=== PATIENT | female | born 1970 | race Caucasian/White ===

== ENCOUNTER 2023-04-04 22:01 | Emergency (ER) | payer OTHER, SELFPAY ==
[2023-04-04 22:04] VITALS: BP 180/112
[2023-04-04 22:30] VITALS: BP 147/98
--- NOTE | 2023-04-04 22:53 | ED.GENMED ---
History of Present Illness
<LATRICE Gray - Last Filed: 04/05/23 03:43>
General
Chief Complaint: Musculo-Skeletal Complaint
Source: patient
Exam Limitations: none
Time Seen by Provider: 04/04/23 22:34
Nursing documentation reviewed up to this point in time: agreed with
Travel History
Have you had any contact with someone who has COVID-19?: No
Do you have any symptoms of coronavirus? Fever > 100 degrees, chills, cough, shortness of breath, sore throat, loss of taste or smell, muscle aches, or headache?: No
History of Present Illness
History of Present Illness:
52 y/o F presents to ED complaining of L hip pain x 3 days. She reports the pain was bearable the first day but has since worsened. She states she has difficult moving her left leg, especially when sitting down or going from sitting to standing. She
reports the pain when she lays down is pulsating but a sharp constant pain in any other position. She reports walking helps the pain. She has been putting a heating pad and took 2 OTC Tylenol this morning at 8:30am. She reports the pain is still
persistent. She reports the pain is 10/10 and is tender at her lateral leg. She reports a similar pain a few years ago but states it was not as bad as today. Denies trauma, numbness, tingling, erythema or swelling.
If applicable-neuro sx onset
Onset of symptoms known: Yes
Date of onset of symptoms: 04/02/23
Time pt last seen normal is known: Yes
Date last time pt seen normal: 04/01/23
Past History
<LATRICE Gray - Last Filed: 04/05/23 03:43>
Past History
ED Past Medical History: None
ED Past Surgical History: and Orthopedic
Social History
Tobacco: Non-smoker
Alcohol: Occasional
Drug: None
Personal:
Living: with family
Employment: Employed
Family History
Family History: Early CAD (brothers, father)
Review of Systems
<LATRICE Gray - Last Filed: 04/05/23 03:43>
Review of Systems
Allergies reviewed?: Yes
All Other Systems: ROS reviewed and negative except as documented in HPI and ROS
Constitutional: Reports no symptoms
EENT: Reports no symptoms
Respiratory: Reports no symptoms
Cardiac: Reports no symptoms
ABD/GI: Reports no symptoms
: Reports no symptoms
Musculoskeletal: Reports muscle pain
Skin: Reports no symptoms
Neurological: Reports no symptoms
Endocrine: Reports no symptoms
Hematologic/Lymphatic: Reports no symptoms
Psychiatric: Reports no symptoms
Phy Exam
<LATRICE Gray - Last Filed: 04/05/23 03:43>
General Physical Exam
General Presentation: well appearing and mild distress
General age: appears stated age
General Skin: warm
General Habitus: normal
General Mental: alert
General Hydration: appears well hydrated
Cardiovascular Exam
Cardiovascular Exam: regular rate/rhythm, no edema, no gallop and no murmur
Pulmonary Exam
Pulmonary Exam: lungs clear, no respiratory distress, no rales, no crackles, no rhonchi, no wheezing and no cough
Musculoskeletal Exam
Musculoskeletal Exam: full ROM, neuro vasc intact and other (tender to palpation along lateral L hip near greater trochanter, negative straight leg raise, 5/5 strength in R hip and R knee, limited strength in L hip likely secondary to pain)
Skin Exam
Skin Exam: normal color and redness (mild erythema along lateral left leg )
Psychiatric Exam
Psychiatric Exam: normal mood/affect
Course
<LATRICE Gray - Last Filed: 04/05/23 03:43>
Orders/Labs/Results
Orders:
Orders
04/05/23 00:00
CR Hip - LT w/wo Pel 2-3 Vw* Urgent
Reason For Exam: pain,
Include a pelvis x-ray?: Yes
04/05/23 00:29
Dexamethasone Pf [Decadron] 10 mg PO NOW STA
Famotidine [Pepcid] 20 mg PO NOW STA
Ketorolac [Toradol] 30 mg IM NOW STA
04/05/23 02:12
Oxycodone/Acetaminophen [Percocet 5/325] 2 tablet PO NOW STA
Vital Signs
Initial and Last Documented VS:
Initial Vital Signs
Temp Pulse Resp BP Pulse Ox
98.1 F 88 22 180/112 100
04/04/23 22:04 04/04/23 22:04 04/04/23 22:04 04/04/23 22:04 04/04/23 22:04
Last Documented Vital Signs
Temp Pulse Resp BP Pulse Ox
98.1 F 84 17 137/101 94
04/04/23 22:04 04/05/23 03:18 04/05/23 03:18 04/05/23 03:00 04/05/23 03:00
<Charles Junior, DO - Last Filed: 04/05/23 03:20>
Orders/Labs/Results
Orders:
Orders
04/05/23 00:00
CR Hip - LT w/wo Pel 2-3 Vw* Urgent
Reason For Exam: pain,
Include a pelvis x-ray?: Yes
04/05/23 00:29
Dexamethasone Pf [Decadron] 10 mg PO NOW STA
Famotidine [Pepcid] 20 mg PO NOW STA
Ketorolac [Toradol] 30 mg IM NOW STA
04/05/23 02:12
Oxycodone/Acetaminophen [Percocet 5/325] 2 tablet PO NOW STA
Vital Signs
Initial and Last Documented VS:
Initial Vital Signs
Temp Pulse Resp BP Pulse Ox
98.1 F 88 22 180/112 100
04/04/23 22:04 04/04/23 22:04 04/04/23 22:04 04/04/23 22:04 04/04/23 22:04
Last Documented Vital Signs
Temp Pulse Resp BP Pulse Ox
98.1 F 84 17 137/101 94
04/04/23 22:04 04/05/23 03:18 04/05/23 03:18 04/05/23 03:00 04/05/23 03:00
<LATRICE Gray - Last Filed: 04/05/23 03:43>
MDM/Problems Addressed
Differential Diagnosis Includes:
greater trochanter pain syndrome (trochanteric bursitis)
hip arthritis
neuropathy (less likely given no radiation of pain, negative straight leg raise test)
hip dislocation/fracture
IT band syndrome (not likely given pain is not present on hip or knee)
<Charles Junior DO - Last Filed: 04/05/23 03:20>
*Radiology
Radiology exam reviewed: all reviewed NAD by ED Provider
*Critical Care Note
Total Time (30-74mins, 75-104mins- exclusive of procedures): Not Applicable
<LATRICE Gray - Last Filed: 04/05/23 03:43>
Update Note
Update Note:
0109: Patient given Toradol 30mg at 00:30. Reports pain unchanged.
0218: Patient reports pain is unchanged. No relief reported.
0317: Pain is slightly better after Percocet. Able to sit up and move around with less pain although still limited.
ED Attending Note
<LATRICE Gray - Last Filed: 04/05/23 03:43>
-
Portions of this chart may have been created with voice recognition software.� Occasional wrong word or��sound alike� substitutions may have occurred due to the inherent limitations of voice recognition software.
<Charles Junior, - Last Filed: 04/05/23 03:20>
ED Attending Note
Patient seen and examined by attending physician: Yes
I performed the substantive portion of visit, reviewed & personally made and approve the management plan that is documented in note by myself or AGNES.: Yes
Discharge Plan
Departure
Patient Disposition: Home (Routine Discharge)
Date of Disposition: 04/05/23
Time of Disposition: 03:16
Patient with high blood pressure during this ER visit?: Yes
Condition: Fair
Discharge Problem:
Acute pain of left hip
Instructions: Muscle and Bone Pain (DC), BLOOD PRESSURE
Prescriptions:
New
oxycodone-acetaminophen [Percocet] 5-325 mg tablet
1 tab PO Q6HPRN PRN (Reason: pain) Qty: 10 0RF
No Action
oxycodone-acetaminophen 5 MG/325 MG tablet
1 tab PO Q4HPRN PRN (Reason: Pain) Qty: 10 0RF
ibuprofen 600 MG tablet
600 mg PO Q6 Qty: 20 0RF
Referrals:
NONE,* [Family Provider] -
Nirav Veronica MD [Active] -
Activity Restrictions/Additional Instructions:
Your Percocet prescription was transmitted to the [facility] pharmacy you requested.
It was a pleasure meeting you and taking part in your care. We hope for your continued healing and wellness.
Please read discharge instructions in their entirety. However, they are for general education and may not describe your exact diagnosis at discharge. Information on your ER visit and medical conditions were discussed with you along with appropriate
follow up information...
If indicated, please take your medications as instructed and indicated on discharge paperwork.
Please schedule a follow up appointment as directed. Call to schedule an appointment
Please return to the emergency department with ANY change in, persisting, or worsening of symptoms. If any of your symptoms do not improve, or persist, or become more severe within 6-12 hours, please return to the emergency department for further
care.
Please return to the emergency department if you develop a headache, neck pain/stiffness, fever greater than 100.4F, chest pain, shortness of breath, persistent nausea, vomiting, slurred speech, difficulty walking, numbness/tingling, weakness, signs
of infection or any other symptoms that are worrisome to you.
If you have any questions or concerns please do not hesitate to call the Hospital at or E-mail me directly at [email or web address]
Interventions
Interventions:
*Risk Screen - Suicide Last Done: 04/04/23 22:04
*General Assessment Last Done: 04/04/23 22:33
*Neglect/Abuse Screening Last Done: 04/04/23 22:04
ED- Fall Risk Assessment Last Done: 04/04/23 22:33
*ED COVID-19 Vaccine History Last Done: 04/04/23 22:33
ED-Musculoskeletal Assessment Last Done: 04/04/23 22:33
[2023-04-04 23:00] VITALS: BP 138/94
[2023-04-05] MEDS: DECADRON 10 MG PO (00:51)
[2023-04-05] MEDS: PEPCID 20 MG PO (00:51)
[2023-04-05] MEDS: TORADOL 30 MG IM (00:52)
[2023-04-05 00:55] VITALS: BP 149/92
[2023-04-05 01:00] VITALS: BP 145/81
[2023-04-05 02:00] VITALS: BP 129/83
[2023-04-05] MEDS: PERCOCET 5/325 2 TABLET PO (02:55)
[2023-04-05 03:00] VITALS: BP 137/101
== END 2023-04-05 03:46 | disposition home or self-care (01) ==
LOC: EMR 22:01
PROVIDERS: EMERGENCY PHYSICIAN Student in an Organized Health Care Education/Training Program
DX: M25.552 Pain in left hip (principal); Z82.49 Family history of ischemic heart disease and other diseases of the circulatory system
CPT/HCPCS: 99284; 96372; 73502

== ENCOUNTER → 2024-01-11 15:32 | Outpatient (REF) | payer OTHER, SELFPAY | LOC: RAD 15:32 | PROVIDERS: ATTENDING PHYSICIAN Obstetrics & Gynecology; FAMILY PHYSICIAN Family Medicine | DX: N95.0 Postmenopausal bleeding (principal) | CPT/HCPCS: 76830; 76856 ==

== ENCOUNTER → 2024-02-25 19:26 | Outpatient (REF) | payer OTHER, SELFPAY | LOC: WDC 19:26 | PROVIDERS: ATTENDING PHYSICIAN Obstetrics & Gynecology Gynecology; FAMILY PHYSICIAN Family Medicine | DX: Z12.31 Encounter for screening mammogram for malignant neoplasm of breast (principal) | CPT/HCPCS: 77063; 77067 ==

== ENCOUNTER → 2024-06-08 17:33 | Outpatient (REF) | payer OTHER, SELFPAY | LOC: RAD 17:33 | PROVIDERS: ATTENDING PHYSICIAN Nurse Practitioner Adult Health | DX: R05.1 Acute cough (principal) | CPT/HCPCS: 71046 ==

== ENCOUNTER 2024-09-14 21:27 | Emergency (ER) | payer OTHER, SELFPAY ==
[2024-09-14 21:31] VITALS: BP 149/103
--- NOTE | 2024-09-15 00:02 | ED.GENMED ---
History of Present Illness
General
Chief Complaint: Urinary Symptoms
Source: patient
Exam Limitations: none
Time Seen by Provider: 09/14/24 23:53
Nursing documentation reviewed up to this point in time: agreed with
History of Present Illness
History of Present Illness:
53-year-old female presents with right flank pain seen by her PCP started on Macrobid blood pressures also been running high not started on meds for that she has some headache and worsening flank pain despite antibiotics, some relief of the headache
with Motrin no fevers no nausea or vomiting, not known to be diabetic nor hypertensive no history of kidney stones but did have hematuria previously underwent a cystoscopy
Past History
Past History
ED Past Surgical History: and Orthopedic
Social History
Tobacco: Non-smoker
Alcohol: Occasional
Drug: None
Personal:
Living: with family
Employment: Employed
Family History
Family History: Early CAD (brothers, father)
Review of Systems
Review of Systems
All Other Systems: Not applicable
Constitutional: Denies fever
EENT: Reports no symptoms
Respiratory: Reports no symptoms
Cardiac: Reports no symptoms
: Reports flank pain; Denies dysuria or incontinence
Musculoskeletal: Reports back pain
Neurological: Reports headache
Endocrine: Reports no symptoms
Hematologic/Lymphatic: Reports no symptoms
Phy Exam
Physical Exam
Physical Exam:
Physical Exam
General: no apparent distress, not acutely ill
Neck: No jaundice
Heart: s1/s2 regular rate and rhythm, no murmur. equal radial pulses.
Lungs: no acute respiratory distress.
Abdomen: Soft mild tenderness in the right CVA
Neuro: alert and oriented. no focal neurological deficits
Skin: no rash
Psychiatric: well kept. interactive and cooperative
Extremities: no edema.
Course
Orders/Labs/Results
Orders:
Orders
09/14/24 21:45
Urinalysis Reflex To Culture Urgent
09/15/24 00:02
CT Abd/pel Without Iv Or Oral Urgent
Comment:
Reason For Exam: Right flank pain
IV Insert/Care/Rem.- Treatment PRN
Acetaminophen [Tylenol] 1,000 mg PO NOW STA
Ketorolac [Toradol] 30 mg IV NOW STA
09/15/24 00:27
Complete Blood Count/With Diff Urgent
Comprehensive Metabolic Panel Urgent
Abnormal Lab Results
09/15/24
00:27
RBC 4.06 L 10^6/uL
(4.20-5.40)
MCH 31.5 H pg
(27.0-31.0)
Chloride 108 H mmol/L
(98-107)
09/15/24 00:27
09/15/24 00:27
Vital Signs
Initial and Last Documented VS:
Initial Vital Signs
Temp Pulse Resp BP Pulse Ox
97.6 F 78 16 149/103 98
09/14/24 21:31 09/14/24 21:31 09/14/24 21:31 09/14/24 21:31 09/14/24 21:31
Last Documented Vital Signs
Temp Pulse Resp BP Pulse Ox
97.6 F 70 16 153/90 99
09/14/24 21:31 09/15/24 00:33 09/15/24 00:33 09/15/24 00:33 09/15/24 00:33
MDM/Problems Addressed
Differential Diagnosis Includes:
UTI stone muscle strain primary hypertension elevated blood pressure due to pain
MDM/Problems Addressed:
Flank pain hypertension
*Radiology
Radiology exam reviewed: radiology read reviewed
*Pulse Oximetry
SaO2: 98
Oxygen Mode of Delivery: Room air
Patient hypoxic: no
*Critical Care Note
Total Time (30-74mins, 75-104mins- exclusive of procedures): Not Applicable
Update Note
Update Note:
[address] report noted patient appears comfortable blood pressure coming down urinalysis with sent will wait to discharge to see how that looks, consideration for analgesics muscle relaxant versus new antibiotics versus antihypertensives
2:40 AM urinalysis totally clear will add some muscle relaxants
ED Attending Note
-
Portions of this chart may have been created with voice recognition software.� Occasional wrong word or��sound alike� substitutions may have occurred due to the inherent limitations of voice recognition software.
Discharge Plan
Departure
Patient Disposition: Home (Routine Discharge)
Date of Disposition: 09/15/24
Time of Disposition: 02:39
Patient with high blood pressure during this ER visit?: Yes
Condition: Good
Discharge Problem:
Back pain
Instructions: High Blood Pressure (DC), Back exercises, Back Pain
Prescriptions:
New
metaxalone 800 mg tablet
800 mg PO QID PRN (Reason: muscle pain) Qty: 20 0RF
naproxen [Naprosyn] 500 mg tablet
500 mg PO BID PRN (Reason: Pain) Qty: 20 0RF
No Action
oxycodone-acetaminophen 5 MG/325 MG tablet
1 tab PO Q4HPRN PRN (Reason: Pain) Qty: 10 0RF
ibuprofen 600 MG tablet
600 mg PO Q6 Qty: 20 0RF
oxycodone-acetaminophen [Percocet] 5-325 mg tablet
1 tab PO Q6HPRN PRN (Reason: pain) Qty: 10 0RF
Referrals:
UNKNOWN - PT DOES,NOT KNOW [Family Provider]
Activity Restrictions/Additional Instructions:
Follow-up with your primary care provider
Interventions
Interventions:
*Risk Screen - Suicide Last Done: 09/14/24 21:31
*General Assessment Last Done: 09/15/24 00:33
*Neglect/Abuse Screening Last Done: 09/14/24 21:31
*ED- Fall Risk Assessment Last Done: 09/15/24 00:33
*ED COVID-19 Vaccine History Last Done: 09/15/24 00:33
ED- Cardiac Assessment Last Done: 09/15/24 00:33
ED-Female Genitourinary Assessment Last Done: 09/15/24 00:33
ED- Neurological Assessment Last Done: 09/15/24 00:33
ED- Pulmonary Assessment Last Done: 09/15/24 00:33
Discharge Date and Time
Print Language: PORTUGUESE
[2024-09-15] MEDS: TYLENOL 1000 MG PO (00:30)
[2024-09-15] MEDS: TORADOL 30 MG IV (00:30)
[2024-09-15 00:33] VITALS: BP 153/90; BMI 29.9
[2024-09-15 00:49] LABS: Hematocrit 37.9 % (37.0-47.0); Hemoglobin 12.8 g/dL (12.0-16.0); Mean Corp Hgb Conc. 33.8 g/dL (33.0-37.0); Mean Corpuscular Volume 93.3 fL (81.0-99.0); Nucleated Red Blood Cells % 0 %; Platelet Count 243 10^3/uL (130-400); Red Cell Dist. Width 12.5 % (11.5-14.5)
[2024-09-15 01:05] LABS: ALT (SGPT) 15 U/L (0-35); AST (SGOT) 20 U/L (14-36); Albumin 4.0 g/dl (3.5-5.0); Alkaline Phosphatase 64 U/L (38-126); Blood Urea Nitrogen 14 mg/dl (7-17); Calcium 10.0 mg/dl (8.4-10.2); Carbon Dioxide 29 mmol/L (22-30); Chloride 108 mmol/L (98-107); Estimated Creatinine Clearance 99 ml/min; Glucose 89 mg/dl (70-99); Potassium 3.9 mmol/L (3.5-5.1); Sodium 140 mmol/L (135-145); Total Protein 6.7 g/dl (6.3-8.2); eGFR > 60.00
[2024-09-15 02:30] LABS: Urine Character Clear (Clear)
== END 2024-09-15 03:05 | disposition home or self-care (01) ==
LOC: EMR 21:27
PROVIDERS: EMERGENCY PHYSICIAN Emergency Medicine
DX: M54.9 Dorsalgia, unspecified (principal); R10.9 Unspecified abdominal pain; R51.9 Headache, unspecified; R03.0 Elevated blood-pressure reading, without diagnosis of hypertension; K21.9 Gastro-esophageal reflux disease without esophagitis; Z86.16 Personal history of COVID-19; Z88.5 Allergy status to narcotic agent; Z88.0 Allergy status to penicillin
CPT/HCPCS: 99284; 96374; 74176; 80053; 81003; 85025

== ENCOUNTER 2024-11-08 19:12 | Emergency (ER) | payer OTHER, SELFPAY ==
[2024-11-08 19:18] VITALS: BP 136/101
--- NOTE | 2024-11-08 22:16 | ED.MUSCINJ ---
HPI-Injury
General
Chief Complaint: Musculo-Skeletal Complaint
Source: patient
Exam Limitations: none
Time Seen by Provider: 11/08/24 20:44
Nursing documentation reviewed up to this point in time: agreed with
History of Present Illness-Injury
Initial Injury comments:
54-year-old female with no significant past medical history states she she tripped on a sidewalk in [facility] 2 evenings ago and fell landing with direct impact to her left rib area. She denies hitting her head. She got up and states she felt fine and
she continued on walking and visiting as was planned that night. The next morning yesterday, she said the pain was worse and is gradually getting worse as the day wears on. Prior to coming here she took 600 mg of Advil which upset her stomach.
She denies trouble breathing but feels like she can only take short shallow breaths due to the pain she denies abdominal pain. She denies any other injury.
Past History
Past History
ED Past Medical History: None
ED Past Surgical History: and Orthopedic
Social History
Tobacco: Non-smoker
Alcohol: Occasional
Drug: None
Personal:
Living: with family
Employment: Employed
Family History
Family History: Early CAD (brothers, father)
Review of Systems
Review of Systems
Allergies reviewed?: Yes
All Other Systems: ROS reviewed and negative except as documented in HPI and ROS
Phy Exam
Physical Exam
Physical Exam:
GENERAL: No acute distress. A&Ox3.
CONSTITUTIONAL: Afebrile.
EYES: clear, conjunctivae normal
ENMT: moist mucus membranes, Pharynx nl
RESPIRATORY: Regular respirations, nonlabored, lungs clear.
CARDIOVASCULAR: Regular rate and rhythm, no murmurs, no rubs.
GI: Soft, nontender, normal BS
MUSCULOSKELETAL: No spinal bony tenderness. Tender to palpate mid to lower left ribs. Small area of ecchymosis on left breast. Moves with ease. Well perfused.
SKIN: Warm, dry, pink
PSYCH: Normal mood and affect. Well kept, interactive and appropriate
NEUROLOGIC: Awake, alert and oriented. No focal neurological deficits
Injury Course
Orders/Labs/Results
Orders:
Orders
11/08/24 19:25
Ribs, Left 3 View W/PA Chest CR [CR Ribs-left 3 Vw W/pa Chest] Urgent
Comment:
Reason For Exam: fall, left rib pain
11/08/24 22:18
Oxycodone/Acetaminophen [Percocet 5/325] 1 tablet PO NOW STA
MDM/Problems Addressed
Differential Diagnosis Includes:
Contusion chest wall, intercostal sprain, rib fracture
MDM/Problems Addressed:
54-year-old female with no significant past medical history states she she tripped on a sidewalk in [facility] 2 evenings ago and fell landing with direct impact to her left rib area. She denies hitting her head. She got up and states she felt fine and
she continued on walking and visiting as was planned that night. The next morning yesterday, she said the pain was worse and is gradually getting worse as the day wears on. Prior to coming here she took 600 mg of Advil which upset her stomach.
She denies trouble breathing but feels like she can only take short shallow breaths due to the pain she denies abdominal pain. She denies any other injury.
X-ray ribs initially read by this examiner, questionable nondisplaced fracture of the mid left eighth rib. No hemo or pneumothorax. This was confirmed by the radiology read.
Rib belt applied with some comfort. Incentive spirometer given
BP recheck 132/88
*Pulse Oximetry
SaO2: 100
Oxygen Mode of Delivery: Room air
Patient hypoxic: no
*Critical Care Note
Total Time (30-74mins, 75-104mins- exclusive of procedures): Not Applicable
ED Attending Note
-
Portions of this chart may have been created with voice recognition software.� Occasional wrong word or��sound alike� substitutions may have occurred due to the inherent limitations of voice recognition software.
Discharge Plan
Departure
Patient Disposition: Home (Routine Discharge)
Date of Disposition: 11/08/24
Time of Disposition: 22:20
Patient with high blood pressure during this ER visit?: No
Condition: Good
Discharge Problem:
Fall from slip, trip, or stumble, Fracture of left eighth rib
Instructions: Rib fracture or bruised rib - ED (DC)
Prescriptions:
New
hydrocodone-acetaminophen 5-325 mg tablet
1 tab PO BID PRN (Reason: Pain) Qty: 6 0RF
No Action
oxycodone-acetaminophen 5 MG/325 MG tablet
1 tab PO Q4HPRN PRN (Reason: Pain) Qty: 10 0RF
ibuprofen 600 MG tablet
600 mg PO Q6 Qty: 20 0RF
oxycodone-acetaminophen [Percocet] 5-325 mg tablet
1 tab PO Q6HPRN PRN (Reason: pain) Qty: 10 0RF
metaxalone 800 mg tablet
800 mg PO QID PRN (Reason: muscle pain) Qty: 20 0RF
naproxen [Naprosyn] 500 mg tablet
500 mg PO BID PRN (Reason: Pain) Qty: 20 0RF
Referrals:
Teresita Eduardo MD [Family Provider, Family Practice] - As needed
Activity Restrictions/Additional Instructions:
As we discussed, we are the rib belt if it helps with the pain. Use the incentive spirometer 10 times every hour while awake.
Ibuprofen 600 mg, with food, every 6 hours as needed for mild to moderate pain.
I sent a prescription to your pharmacy for Vicodin(hydrocodone) to use if needed for worse pain
Interventions
Interventions:
*Risk Screen - Suicide Last Done: 11/08/24 19:23
*General Assessment Last Done: 11/08/24 22:30
*Neglect/Abuse Screening Last Done: 11/08/24 19:23
*ED- Fall Risk Assessment Last Done: 11/08/24 22:30
*Nursing Disposition Last Done: 11/08/24 22:31
ED-Musculoskeletal Assessment Last Done: 11/08/24 22:30
Discharge Date and Time
Discharge Date/Time: 11/08/24 22:32
Print Language: CITIZEN [place]
[2024-11-08] MEDS: PERCOCET 5/325 1 TABLET PO (22:32)
== END 2024-11-08 22:32 | disposition home or self-care (01) ==
LOC: EMR 19:12
PROVIDERS: EMERGENCY PHYSICIAN Emergency Medicine; FAMILY PHYSICIAN Family Medicine
DX: S22.32XA Fracture of one rib, left side, initial encounter for closed fracture (principal); W01.0XXA Fall on same level from slipping, tripping and stumbling without subsequent striking against object, initial encounter; Y93.01 Activity, walking, marching and hiking
CPT/HCPCS: 99283; 71101

== ENCOUNTER 2024-11-16 19:57 | Emergency (ER) | payer OTHER, SELFPAY ==
[2024-11-16 20:02] VITALS: BP 179/110
[2024-11-16 20:18] LABS: Hematocrit 38.7 % (37.0-47.0); Hemoglobin 13.0 g/dL (12.0-16.0); Mean Corp Hgb Conc. 33.6 g/dL (33.0-37.0); Mean Corpuscular Volume 94.6 fL (81.0-99.0); Nucleated Red Blood Cells % 0 %; Platelet Count 271 10^3/uL (130-400); Red Cell Dist. Width 13.0 % (11.5-14.5)
[2024-11-16 20:31] LABS: ALT (SGPT) 19 U/L (0-35); AST (SGOT) 26 U/L (14-36); Albumin 4.4 g/dl (3.5-5.0); Alkaline Phosphatase 62 U/L (38-126); Blood Urea Nitrogen 19 mg/dl (7-17); Calcium 9.6 mg/dl (8.4-10.2); Carbon Dioxide 27 mmol/L (22-30); Chloride 104 mmol/L (98-107); Glucose 91 mg/dl (70-99); Potassium 3.7 mmol/L (3.5-5.1); Sodium 138 mmol/L (135-145); Total Protein 7.0 g/dl (6.3-8.2); eGFR > 60.00
[2024-11-16 20:42] LABS: Troponin I < 0.012 ng/ml
[2024-11-16 22:00] VITALS: BP 147/97
[2024-11-16 22:31] VITALS: BMI 29.3
[2024-11-16 22:33] VITALS: BP 178/89
[2024-11-16 22:35] VITALS: BP 178/89
[2024-11-16 23:00] VITALS: BP 161/95
[2024-11-16] MEDS: TORADOL 30 MG IV (23:38)
--- NOTE | 2024-11-16 23:49 | ED.GENMED ---
History of Present Illness
General
Chief Complaint: Chest Pain
Source: patient
Exam Limitations: none
Time Seen by Provider: 11/16/24 23:01
Nursing documentation reviewed up to this point in time: agreed with
History of Present Illness
History of Present Illness:
see MDM
Past History
Past History
ED Past Medical History: None
ED Past Surgical History: and Orthopedic
Social History
Tobacco: Non-smoker
Alcohol: Occasional
Drug: None
Personal:
Living: with family
Employment: Employed
Family History
Family History: Early CAD (brothers, father)
Review of Systems
Review of Systems
Allergies reviewed?: Yes
All Other Systems: Not applicable
Phy Exam
Physical Exam
Physical Exam:
GENERAL: Alert , in no apparent distress
EYE: pupils equal and reactive
NECK: Supple
ENT: o/p clr, mmm.
CARDIAC: Regular rate and rhythm .
chest wall: L upper lateral brest with brownish bruising
tender L anterior 8th rib region mid clavicular line
LUNGS: Clear breath sounds bilaterally, no acute respiratory distress, no wheezes/rales/rhonchi
ABDOMEN: Soft, without focal tenderness, no r/g, no cvat, normal bowel sounds
NEUROLOGICAL: Alert and oriented, no focal neuro deficits
SKIN: Warm and dry, skin intact.
MUSCULOSKELETAL: No edema, well perfused. neg saida's sign
PSYCH: Normal and appropriate interaction.
Course
Orders/Labs/Results
Orders:
Orders
11/16/24 19:57
ECG [Electrocardiogram (*1)] Urgent
Reason for Study: Chest Pain
EKG- Treatment ONCE
11/16/24 20:05
CR Chest - 2 Views Urgent
Comment:
Reason For Exam: chest discomfort
11/16/24 20:11
Complete Blood Count/With Diff Urgent
Comprehensive Metabolic Panel Urgent
Troponin I Urgent
11/16/24 23:24
CT Chest PE Study Urgent
Comment:
Reason For Exam: L pleuritic pain, sob, recent trauma
Ketorolac [Toradol] 30 mg IV NOW STA
11/16/24 23:25
Electrocardiogram (*1) Urgent
Reason for Study: Chest Pain
EKG- Treatment ONCE
11/17/24
Electrocardiogram (*1) Stat
Reason for Study: Chest Pain
11/17/24 00:31
Troponin I Urgent
Abnormal Lab Results
11/16/24
20:11
RBC 4.09 L 10^6/uL
(4.20-5.40)
MCH 31.8 H pg
(27.0-31.0)
BUN 19 H mg/dl
(7-17)
11/16/24 20:11
11/16/24 20:11
Vital Signs
Initial and Last Documented VS:
Initial Vital Signs
Temp Pulse Resp BP Pulse Ox
36.7 C 67 18 179/110 99
11/16/24 20:02 11/16/24 20:02 11/16/24 20:02 11/16/24 20:02 11/16/24 20:02
Last Documented Vital Signs
Temp Pulse Resp BP Pulse Ox
36.4 C 74 16 135/87 93
11/16/24 22:35 11/17/24 01:45 11/17/24 01:45 11/17/24 01:00 11/17/24 01:30
MDM/Problems Addressed
MDM/Problems Addressed:
Note:
CHIEF COMPLAINT(S)
Persistent thoracic pain and episodic burning sensation after a fall.
HISTORY OF PRESENT ILLNESS
The patient is a 54-year-old female who presents with thoracic pain and intermittent burning sensation following a fall on the sidewalk approximately two weeks ago. She describes the pain as persistent and initially sought care where an X-ray noted
a nondisplaced rib fracture at the left eighth rib. The pain is exacerbated by movements such as vacuuming and bending, as well as lying flat, while standing seems to alleviate the discomfort to some extent.
The patient reports that initially prescribed pain medications, including Ibuprofen and acetaminophen, have not provided significant relief. She experiences difficulty breathing deeply due to the pain and mentions a heightened sensitivity to rainy
and damp weather. More recently, she describes a burning sensation that occurs sporadically, lasting about 5-6 seconds with intervals of the same duration. This burning is not associated with exertion and hasnt alleviated with position change or
resting. The sensation occurs over her chest and sometimes radiates to the shoulder blades.
The patient denies any sharp chest pain or changes associated with exertion such as walking. She also does not report any gastrointestinal symptoms such as acid reflux.
On exploring potential life-threatening causes of these symptoms, an EKG and initial troponin test showed no clear evidence of acute coronary syndrome. A chest CT scan is deemed necessary to exclude additional rib fractures and rule out other
possible complications such as pulmonary embolism or pneumothorax.
PAST MEDICAL AND SURIGICAL HISTORY
The patient denies a history of prior blood clots, recent surgeries, or cancer.
CHRONIC MEDICAL CONDITIONS SIGNIFICANTLY AFFECTING CARE
The patient does not report any history of conditions that might predispose her to blood clots, such as recent surgery, cancer, or hormone replacement therapy use.
PLAN
1. Conduct a chest CT scan to assess for potential additional rib fractures and to evaluate for other significant complications such as pneumothorax or pulmonary embolism.
2. Administer Toradol intravenously for improved pain management while avoiding sedation.
3. Monitor for possible development of shingles, as stress and trauma can exacerbate this condition.
4. Follow-up with repeat EKG and troponin tests to reassess cardiac status if required.
5. Provide reassurance and education on the importance of ruling out more severe conditions and managing symptoms effectively.
DIFFERENTIAL DIAGNOSIS
The Differential Diagnosis includes, in no particular order and is not limited to:
1. Rib fracture complications
2. Intercostal neuralgia
3. Shingles (Herpes Zoster)
4. Pulmonary embolism
5. Cardiovascular event (e.g., myocardial infarction)
6. Pneumothorax
7. Musculoskeletal strain or spasm
8. Acid Reflux Disease
9. Gastroesophageal Reflux Disease (GERD)
10. Anxiety or panic disorder associated symptoms
CARE-UPDATE
11/17/24 - 00:44
The patients recent imaging results showed no pulmonary embolism, aortic aneurysm, or pericardial effusion, but indicated pneumonia and two rib fractures at ribs seven and eight, which are slightly displaced from the original injury. The patient
reports persistent pain despite Toradol, with some improvement in specific positions. It is recommended that the patient continue pain management with Tylenol or Advil during the day and reserve hydrocodone for nighttime use, considering its
sedative properties. A urine sample offer was declined, though a test was suggested for frequent urination. The patient is awaiting blood work results and plans to drive themselves, thus avoiding opiate use prior to departure. A prescription for a
nighttime analgesic will be provided.
2nd ekg and 2nd trop neg
d/c home
*Pulse Oximetry
SaO2: 97
Oxygen Mode of Delivery: Room air
ED Attending Note
-
Portions of this chart may have been created with voice recognition software.� Occasional wrong word or��sound alike� substitutions may have occurred due to the inherent limitations of voice recognition software.
Discharge Plan
Departure
Patient Disposition: Home (Routine Discharge)
Date of Disposition: 11/17/24
Time of Disposition: 01:40
Patient with high blood pressure during this ER visit?: Yes
Condition: Fair
Discharge Problem:
Chest pain
Instructions: Costochondritis (DC), Chest Pain PCP Follow Up
Prescriptions:
New
oxycodone 5 mg tablet
5 mg PO Q8H PRN (Reason: Pain) Qty: 10 0RF
No Action
oxycodone-acetaminophen 5 MG/325 MG tablet
1 tab PO Q4HPRN PRN (Reason: Pain) Qty: 10 0RF
ibuprofen 600 MG tablet
600 mg PO Q6 Qty: 20 0RF
oxycodone-acetaminophen [Percocet] 5-325 mg tablet
1 tab PO Q6HPRN PRN (Reason: pain) Qty: 10 0RF
metaxalone 800 mg tablet
800 mg PO QID PRN (Reason: muscle pain) Qty: 20 0RF
naproxen [Naprosyn] 500 mg tablet
500 mg PO BID PRN (Reason: Pain) Qty: 20 0RF
hydrocodone-acetaminophen 5-325 mg tablet
1 tab PO BID PRN (Reason: Pain) Qty: 6 0RF
Referrals:
Teresita Eduardo MD [Family Provider, Family Practice] - Follow up in 2-3 days
Activity Restrictions/Additional Instructions:
YOUR PAIN DOES NOT SEEM TO BE CAUSED BY AN EMERGENCY RELATED TO YOUR HEART AND LUNGS
IT IS LIKELY MUSCULOSKELETAL, CAN BE THE NERVE/MUSCLES IN BETWEEN YOUR RIBS
IT ALSO COULD BE REFLUX BUT LESS LIKELY GIVEN LOCATION
YOUR CAT SCAN SHOWED NO PUNCTURED LUNG OR BLOOD CLOT BUT YOU HAVE 2 RIB FRACTURES #7 AND #8
USE THE INCENTIVE SPIROMETER TO AVOID PNEUMOINA
USE TYLENOL 2-3 TIMES A DAY AND IBUPROFEN 2-3 TIMES A DAY WITH FOOD
AT NIGHT ASNEEDED YOU CAN USE OXYCODONE 5 MG NEEDED, USE A STOOL SOFTENER NEEDED FOR CONSTIPATION WITH OPIATES
RETURN FOR ANY CONCERNS
OTHERWISE SEE YOUR DOCTOR NEXT WEEK
Interventions
Interventions:
*Risk Screen - Suicide Last Done: 11/16/24 22:34
*General Assessment Last Done: 11/16/24 20:02
*Neglect/Abuse Screening Last Done: 11/16/24 22:34
*ED- Fall Risk Assessment Last Done: 11/16/24 22:34
*ED COVID-19 Vaccine History Last Done: 11/16/24 22:34
*Nursing Disposition Last Done: 11/17/24 01:50
ED- Cardiac Assessment Last Done: 11/16/24 22:38
Discharge Date and Time
Discharge Date/Time: 11/17/24 01:54
Print Language: LAO
[2024-11-17] VITALS: BP 153/93
[2024-11-17 01:00] VITALS: BP 135/87
[2024-11-17 01:25] LABS: Troponin I < 0.012 ng/ml
== END 2024-11-17 01:54 | disposition home or self-care (01) ==
LOC: EMR 19:57
PROVIDERS: Physician Assistant; Student in an Organized Health Care Education/Training Program; EMERGENCY PHYSICIAN Emergency Medicine; FAMILY PHYSICIAN Family Medicine
DX: R07.9 Chest pain, unspecified (principal); R03.0 Elevated blood-pressure reading, without diagnosis of hypertension; S22.42XA Multiple fractures of ribs, left side, initial encounter for closed fracture; W19.XXXA Unspecified fall, initial encounter; Z82.49 Family history of ischemic heart disease and other diseases of the circulatory system
CPT/HCPCS: 99284; 96374; 71046; 71275; 80053; 84484; 85025; 93005; Q9967